=== PATIENT | male | born 1960 | race Caucasian/White ===

== ENCOUNTER → 2017-02-24 | Outpatient (CLI) | payer BC ==
[~2017-02-24] MED LIST: ANT25 PO; ATOR-54 PO; LEVO200T32 PO; MINO100C22 PO; NIFE30TA83 PO; PRLSR20 PO; TRIA1SPR2 NAE
--- NOTE | 2017-02-24 10:44 | DIAGNOSTIC IMAGING REPORT ---
CHEST 2 VIEWS ROUTINE CLINICAL HISTORY: D86.9 [id number] COMPARISON STUDY: 12/08/2015 FINDINGS: The cardiac and mediastinal contours are normal. There is no evidence of focal pulmonary consolidation. There is no evidence of failure. No pleural effusions are visualized.[ IMPRESSION: No active disease in the chest. Electronically signed by: Giovanny Treviño M.D. 02/24/2017 10:43 AM Dictated Date/Time: 02/24/2017 10:43 AM
== END | disposition home or self-care (01) ==
LOC: C.RAD1850 10:18
PROVIDERS: ATTEND Internal Medicine Pulmonary Disease
DX: D86.9 Sarcoidosis, unspecified (principal)

== ENCOUNTER → 2017-10-03 | Outpatient (CLI) | payer OTHER ==
[~2017-10-03] MED LIST changes: +PERFLUTREN LIPID MICROSPHERE (DEFINITY) IV ONE
--- NOTE | 2017-10-03 13:40 | EXERCISE STRESS ECHO ---
*NOTICE TO RECEIVING [employer] This information is strictly Confidential and protected under [place] law. [place] law prohibits you from making any further disclosure of this information unless further disclosure is expressly permitted by the written consent of the person to whom it pertains or is authorized by law. A general authorization for the release of medical or other information is not sufficient for this purpose. Hospital accepts no responsibility if the information is made available to any other person, INCLUDING THE PATIENT. Interpretation Summary * Name: CJ SINGLETARY Study Date: 10/03/2017 09:32 AM BP: 170/90 mmHg * Patient Location: [facility] HR: 75 * : 1960 (M/d/yyyy) Gender: Male Height: 73 in * Age: 57 yrs Ethnicity: [place] Weight: 240 lb * Ordering Physician: Kvng Partida * Referring Physician: Kvng Partida * Performed By: Yessi Car RDCS * * Reason For Study: Chest pain, shortness of breath * BSA: 2.3 m2 * -- Conclusions -- * 1. Normal stress echocardiogram at 10 METS and a peak heart rate of greater than 100% predicted maximum. * 2. No exercise-induced chest pain. * 3. No EKG changes. * 4. Baseline echocardiogram notes normal left ventricular systolic function and a mildly dilated aortic root and ascending thoracic aorta. Procedure Details * ECHOEX, CPT #[id number] * ECHO DOPPLER, CPT #[id number] * ECHO COLOR FLOW, CPT #[id number] * A contrast injection of Definity was performed to improve assessment of LV function. * Contrast was injected into an intravenous site in the right arm. * One vial of Definity ultrasound contrast was diluted in normal saline to a total volume of 10 ml. A total of '4' ml of solution was administered during imaging. * Lot # [id number] of Definity utilized for procedure. * Expiration date SEP 21. * The attending nurse who injected the contrast agent was Kerri Madsen RN. Left Ventricle * The left ventricle is normal in size. * There is normal left ventricular wall thickness. * Ejection Fraction = 55-60%. * Left ventricular systolic function is normal. * Resting wall motion: Normal. Stress wall motion: Appropriate increase in Left ventricular systolic function and decrease in cavity size. No stress induced segmental wall motion abnormalities. Right Ventricle * The right ventricle is not well visualized. * The right ventricular systolic function is normal as assessed by tricuspid annular plane systolic excursion (TAPSE) (normal >1.5 cm). Atria * The left atrium is mildly dilated. * Right atrial size is normal. * No ASD detected; PFO is not assessed. Mitral Valve * The mitral valve anatomy is normal. * There is no mitral valve stenosis. * There is mild mitral regurgitation. Tricuspid Valve * The tricuspid valve anatomy is normal. * There is no tricuspid stenosis. * There is mild tricuspid regurgitation. Aortic Valve * The aortic valve is normal in structure and function. * No hemodynamically significant valvular aortic stenosis. * Trace aortic regurgitation. Pulmonic Valve * The pulmonary valve is not well seen, but the Doppler examination is normal without significant regurgitation or stenosis. Great Vessels * Mild aortic root dilatation. * Mildly dilated ascending aorta. * The pulmonary is not well visualized. Pericardium * There is no pericardial effusion. Stress Parameters * Normal baseline electrocardiogram. * Stress ECG: No ST changes. No arrhythmias. * The stress portion of this study was personally supervised by the undersigned interpreting physician. * Rest heart rate was '75' BPM. * Rest blood pressure was '170/90' * Maximum heart rate achieved was 173 bpm. * Maximum heart rate was 106 % of maximum age-predicted heart rate. * Maximum blood pressure was '176/80' * Total exercise time was '9:10' * Maximum exercise MET level achieved was '10.3' METS * Maximum treadmill speed was '4.20' miles per hour. * Maximum treadmill elevation was '16.00'% grade. * Exercise was terminated due to 'achieving target heart rate' MMode 2D Measurements and Calculations IVSd 1.1 cm LVIDd 4.7 cm LVIDs 3.3 cm LVPWd 0.94 cm IVS/LVPW 1.2 FS 29.5 % EDV(Teich) 101.4 ml ESV(Teich) 44.1 ml EF(Teich) 56.5 % EDV(cubed) 102.6 ml ESV(cubed) 35.9 ml EF(cubed) 65.0 % LV mass(C)d 172.7 grams LV mass(C)dI 74.3 grams/m\S\2 SV(Teich) 57.3 ml SI(Teich) 24.7 ml/m\S\2 SV(cubed) 66.7 ml SI(cubed) 28.7 ml/m\S\2 Ao root diam 3.9 cm Ao root area 11.9 cm\S\2 ACS 1.7 cm LA dimension 3.5 cm asc Aorta Diam 3.7 cm LA/Ao 0.91 LVOT diam 2.1 cm LVOT area 3.3 cm\S\2 LVAd ap4 35.2 cm\S\2 LVLd ap4 8.6 cm EDV(MOD-sp4) 116.8 ml EDV(sp4-el) 122.2 ml LVAs ap4 19.4 cm\S\2 LVLs ap4 6.3 cm ESV(MOD-sp4) 49.1 ml ESV(sp4-el) 50.2 ml EF(MOD-sp4) 58.0 % EF(sp4-el) 58.9 % LVAd ap2 34.2 cm\S\2 LVLd ap2 8.7 cm EDV(MOD-sp2) 115.0 ml EDV(sp2-el) 113.7 ml LVAs ap2 20.1 cm\S\2 LVLs ap2 7.0 cm ESV(MOD-sp2) 47.7 ml ESV(sp2-el) 49.1 ml EF(MOD-sp2) 58.6 % EF(sp2-el) 56.9 % LVLd %diff 1.2 % EDV(MOD-bp) 114.6 ml LVLs %diff 9.2 % ESV(MOD-bp) 50.8 ml EF(MOD-bp) 55.7 % SV(MOD-sp4) 67.7 ml SI(MOD-sp4) 29.1 ml/m\S\2 SV(MOD-sp2) 67.4 ml SI(MOD-sp2) 29.0 ml/m\S\2 SV(MOD-bp) 63.8 ml SI(MOD-bp) 27.4 ml/m\S\2 SV(sp4-el) 72.0 ml SI(sp4-el) 31.0 ml/m\S\2 SV(sp2-el) 64.7 ml SI(sp2-el) 27.8 ml/m\S\2 Doppler Measurements and Calculations MV E max mikaela 59.7 cm/sec MV A max mikaela 57.2 cm/sec MV E/A 1.0 MV dec time 0.22 sec Ao V2 max 95.6 cm/sec Ao max PG 3.7 mmHg Ao max PG (full) 1.4 mmHg DAWOOD(V,A) 2.6 cm\S\2 DAWOOD(V,D) 2.6 cm\S\2 AI max mikaela 238.9 cm/sec AI max PG 22.8 mmHg AI dec slope 83.4 cm/sec\S\2 AI P1/2t 839.5 msec LV V1 max PG 2.2 mmHg LV V1 max 74.2 cm/sec PA V2 max 116.7 cm/sec PA max PG 5.5 mmHg PA acc slope 428.2 cm/sec\S\2 PA acc time 0.13 sec TR max mikaela 168.8 cm/sec PA pr(Accel) 20.4 mmHg
== END | disposition home or self-care (01) ==
LOC: C.CPL 09:06
PROVIDERS: ATTEND Internal Medicine
DX: R07.9 Chest pain, unspecified (principal); R06.02 Shortness of breath

== ENCOUNTER → 2017-10-05 | Outpatient (CLI) | payer OTHER ==
[~2017-10-05] MED LIST changes: -PERFLUTREN LIPID MICROSPHERE (DEFINITY) IV ONE
== END | disposition home or self-care (01) ==
LOC: C.PATHSPEC 12:30
PROVIDERS: ATTEND Internal Medicine
DX: D18.01 Hemangioma of skin and subcutaneous tissue (principal)